=== PATIENT | female | born 1950 | race Caucasian/White ===

== ENCOUNTER 2017-07-19 17:39 | Emergency (ER) | payer MEDICARE ==
[2017-07-19 17:47] VITALS: TEMP 98.9; O2SAT 100
[2017-07-19 17:55] VITALS: BP 107/52; PULSE 62; TEMP 99.1; O2SAT 95
--- NOTE | 2017-07-19 18:05 | PD ---
HPI . slip and fall now with hip pain and pain in neck with movement Chief Complaint: hip and and neck pain Time Seen by Provider: 18:04 Travel History International Travel<30 days: No Contact w/Intl Traveler<30days: No Traveled to known affect area: No History of Present Illness HPI 67 yr old female with hx of DM, HTN, HLD and CAD [place] brought in by [facility] after she slipped coming out of restaurant. She says she was trying to avoid a puddle of water and slipped on a wet rug. She denies any syncope or dizziness. She did not hit her head of have any LOC. She is now c/o pain in her right hip and also has pain in her neck. She has full ROM of her neck, but points to the sides in her trapezius muscles. She rates the pain as 7/10. PFSH Past Medical History Cardiovascular Problems: Yes Family History Family Breast Cancer: No Family Myocardial Infarction: No Family Hypercholesterolemia: No Social History Tobacco Use: No Allergies-Medications (Allergen,Severity, Reaction): Coded Allergies: shellfish derived (Verified Allergy, Intermediate, 07/19/17) Reported Meds & Prescriptions Reported Meds & Active Scripts Active Ibuprofen 800 Mg Tab 800 Mg PO Q8H PRN Review of Systems General / Constitutional: No: Fever Eyes: No: Visual changes HENT: Positive: Neck Pain, No: Headaches Cardiovascular: No: Chest Pain or Discomfort Respiratory: No: Shortness of Breath Gastrointestinal: No: Abdominal Pain Genitourinary: No: Dysuria Musculoskeletal: Positive: Pain (right hip) Skin: No Rash Neurologic: No: Weakness Psychiatric: No: Depression Endocrine: No: Polydipsia Hematologic/Lymphatic: No: Easy Bruising Physical Exam Narrative GENERAL: AAO x 3, no acute distress, Well-nourished, well-developed patient. SKIN: Warm and dry. No visible rashes or bruising. HEAD: Normocephalic and atraumatic. EYES: No scleral icterus. No injection or drainage. ENT: No nasal drainage noted. Mucous membranes pink. Airway patent. NECK: Supple, trachea midline. No JVD. No step off/ full ROM, tenderness along b/l trapezius CARDIOVASCULAR: Regular rate and rhythm without murmurs, gallops, or rubs. RESPIRATORY: Breath sounds equal bilaterally. No accessory muscle use. No rhonchi or rales. GASTROINTESTINAL: Abdomen soft, non-tender, nondistended. no rebound or guarding EXTREMITIES: No cyanosis or edema. b/l hips move normally, but pain elicited on right side BACK: No obvious deformity. No CVA tenderness. no step off NEURO: CN II-12 intact, title camera operator strength normal b/l, UE and LE 5/5, no focal deficits PSYCH: AAO x 3, normal affect. Data Data Last Documented VS Vital Signs Date Time Temp Pulse Resp B/P (MAP) Pulse Ox O2 Delivery O2 Flow Rate FiO2 07/19/17 18:00 Room Air 07/19/17 17:55 99.1 62 107/52 (70) 95 Orders Orders Hip, Uni(Ap&Lat) W Ap Pelvis (07/19/17 18:19) Ketorolac Inj (Toradol Inj) (07/19/17 18:45) MDM Medical Decision Making Medical Screen Exam Complete: Yes Emergency Medical Condition: Yes Medical Record Reviewed: Yes Differential Diagnosis cervical muscle strain, bone contusion, less likely hip fracture Narrative Course 67 yr old female here s/p slip and fall. I ordered xray of her right hip as she has some pain. I do not suspect any bony abn. She has full ROM of this joint. I do not believe c spine imaging is necessary as she does not meet Nexus criteria. I will make further recommendations pending workup. Last Impressions Hip and Pelvis X-Ray 07/19/17 0308 Signed Impressions: Service Date/Time: Wednesday, July 19, 2017 18:31 - CONCLUSION: Negative for fracture or dislocation. Follow up in 7-10 days is suggested if symptoms persist to exclude subtle greater trochanteric fracture. Jerrod Alonso MD FACR I recommend Ibuprofen PRN. Advised patient if her pain persists, to f/u with PCP or go to nearest ED. Patient verbalized understanding of instructions, questions were answered, and thanked me for their care. I advised them if their condition worsens, please return to the nearest emergency room for further care. Diagnosis Primary Impression: Fall Qualified Codes: W19.XXXA - Unspecified fall, initial encounter Additional Impressions: Cervical strain Qualified Codes: S16.1XXA - Strain of muscle, fascia and tendon at neck level , initial encounter Hip pain Qualified Codes: M25.551 - Pain in right hip Patient Instructions: General Instructions Additional Instructions: Please return to emergency department if your symptoms return or worsen. Follow up with your primary care provider. Take medications as prescribed. If your pain persists past 7-10 days, follow-up with her primary care provider go to the nearest ED. Med/Other Pt SpecificInfo: Prescription(s) given Scripts Ibuprofen (Ibuprofen) 800 Mg Tab 800 MG PO Q8H Y for Pain/Inflammation, #21 TAB 0 Refills Prov: Vandana Krishnan MD 07/19/17 Disposition: 01 DISCHARGE HOME Condition: Stable Araceli Gutierrez Jul 19, 2017 18:05
[2017-07-19] MEDS ORDERED: KETOROLAC TROMETHAMINE 60 MG/2 ML (IM) VIAL IM ONE (18:45)
--- NOTE | 2017-07-19 18:53 | RADRPT ---
EXAM DATE/TIME: 07/19/2017 18:31 [facility] COMPARISON: No previous studies available for comparison. INDICATIONS : Right posterior hip pain, fell MEDICAL HISTORY : None. SURGICAL HISTORY : None. ENCOUNTER: Initial ACUITY: 1 day PAIN SCORE: 4/10 LOCATION: Right Hip FINDINGS: Examination of the right hip was performed with AP Pelvis. The primary and secondary trabecular diann joan of the femoral neck is intact. The hip joint is of normal width without significant sclerosis or bony hypertrophy. The acetabulum is grossly intact. Pelvic calcifications, probable fibroid uterus . CONCLUSION: Negative for fracture or dislocation. Follow up in 7-10 days is suggested if symptoms persist to exclude subtle greater trochanteric fracture. Jerrod Alonso MD FACR on July 19, 2017 at 18:50 Board Certified Radiologist. This report was verified electronically.
[2017-07-19] MEDS ORDERED: IBUP800T23 PO (19:09)
== END 2017-07-19 19:25 | disposition home or self-care (01) ==
LOC: NEPD 17:39
DX: S16.1XXA Strain of muscle, fascia and tendon at neck level, initial encounter (principal); M25.551 Pain in right hip; W01.0XXA Fall on same level from slipping, tripping and stumbling without subsequent striking against object, initial encounter; Y93.01 Activity, walking, marching and hiking; Y92.511 Restaurant or cafe as the place of occurrence of the external cause
CPT/HCPCS: 73502; 96372; 99284; J1885